=== PATIENT | female | born 1985 | race Two or more races ===

== ENCOUNTER 2019-06-04 14:13 | Emergency (ER) | payer MEDICAID ==
[~2019-06-04] VITALS: Ht 167.6 cm; Wt 68.0 kg
[2019-06-04] MEDS ORDERED: Methocarbamol 750mg tab ORAL ONE (14:45)
[2019-06-04] MEDS ORDERED: Omnipaue 350mg/ml 100ml vial INJ PRN (14:45)
[2019-06-04] MEDS ORDERED: Ketorolac 30mg Inj IV ONE (14:45)
--- NOTE | 2019-06-04 14:45 | NUR ---
ED Nurse Note: Patient walked into ER due to bilateral upper back pain radiating to RLE for for the past 3-4 days. Increased pain when lying flat and c/o SOB/dyspnea with supine position. Reports no flu-like symptoms, long flight or injury. Reports no recent surgery or procedure. Increased pain with walking. Placed patient in gown and property assessment monitor on.
[2019-06-04 15:10] LABS: BASOPHILS % (AUTO) 1.2 % (0.0-2.0); HEMATOCRIT 35.4 % (37.0-47.0); HEMOGLOBIN 11.1 G/DL (12.0-16.0); LYMPHOCYTES % (AUTO) 29.3 % (20.0-45.0); MEAN CORPUSCULAR VOLUME 71 FL (80-99); MONOCYTES % (AUTO) 12.4 % (1.0-10.0); NEUTROPHILS % (AUTO) 57.1 % (45.0-75.0); PLATELET COUNT 364 K/UL (150-450); RED BLOOD COUNT 5.03 M/UL (4.20-5.40); RED CELL DISTRIBUTION WIDTH 16.5 % (11.6-14.8); WHITE BLOOD COUNT 6.9 K/UL (4.8-10.8)
--- NOTE | 2019-06-04 15:12 | NUR ---
ED Nurse Note: U/S tech at bedside.
[2019-06-04 15:21] LABS: ANION GAP 9 mmol/L (5-15); BLOOD UREA NITROGEN 11 mg/dL (7-18); CALCIUM 8.7 MG/DL (8.5-10.1); CARBON DIOXIDE 32 MMOL/L (21-32); CHLORIDE 101 MMOL/L (98-107); CREATININE 0.6 MG/DL (0.55-1.30); POTASSIUM 3.7 MMOL/L (3.5-5.1); SODIUM 141 MMOL/L (136-145)
[2019-06-04 15:22] LABS: APPEARANCE,URINE CLEAR; BILIRUBIN, URINE NEGATIVE (NEGATIVE); GLUCOSE, URINE (UA) NEGATIVE (NEGATIVE); KETONES,URINE 1+ (NEGATIVE); LEUKOCYTE ESTERASE ,URINE 1+ (NEGATIVE); NITRITE,URINE NEGATIVE (NEGATIVE); PH,URINE 6 (4.5-8.0); PROTEIN,URINE 1+ (NEGATIVE); UROBILINOGEN,URINE 1 MG/DL (0.0-1.0)
[2019-06-04 15:23] LABS: COLOR,URINE YELLOW
[2019-06-04 15:36] LABS: ALANINE AMINOTRANSFERASE 22 U/L (12-78); ALBUMIN/GLOBULIN RATIO 1.1 (1.0-2.7); ALKALINE PHOSPHATASE 70 U/L (46-116); ASPARTATE AMINO TRANSFERASE 24 U/L (15-37); BILIRUBIN,TOTAL 0.4 MG/DL (0.2-1.0)
--- NOTE | 2019-06-04 15:41 | NUR ---
ED Nurse Note: Patient taken down to CT scan via gurney.
--- NOTE | 2019-06-04 16:16 | NUR ---
ED Nurse Note: Patient returned to ER. Placed patient back on panel monitor. Patient reports no pain at this time.
[2019-06-04 16:17] VITALS: BP 102/78
--- NOTE | 2019-06-04 17:13 | Diagnostic Imaging Report ---
EXAM: CT Angiography Chest With Intravenous Contrast CLINICAL HISTORY: PAIN TECHNIQUE: Axial computed tomographic angiography images of the chest with intravenous contrast. CTDI is 48.9 mGy and DLP is 727.1 mGy-cm. One or more of the following dose reduction techniques were used: automated exposure control, adjustment of the mA and/or kV according to patient size, use of iterative reconstruction technique. MIP reconstructed images were created and reviewed. COMPARISON: No relevant prior studies available. FINDINGS: Pulmonary arteries: Unremarkable. No pulmonary embolism. Aorta: No acute findings. No thoracic aortic aneurysm. Lungs: Unremarkable. No mass. No consolidation. Pleural space: Unremarkable. No significant effusion. No pneumothorax. Heart: Unremarkable. No cardiomegaly. No significant pericardial effusion. No evidence of RV dysfunction. Bones/joints: No acute fracture. No dislocation. Soft tissues: Mild distention of both intrarenal collecting systems. Lymph nodes: Unremarkable. No enlarged lymph nodes. IMPRESSION: No PE or aortic dissection. No acute pulmonary infiltrate. Fullness of both intrarenal collecting systems.
--- NOTE | 2019-06-04 17:20 | Emergency Room Report ---
History of Present Illness General Chief Complaint: Back Pain-No Injury Source: Patient Present Illness HPI 33-year-old female with no significant past medical history here complaining of 3 days of chest pain and pleuritic chest pain rating a 10 out of 10 with radiation to lumbar region. Patient reports that around his symptoms right knee and calf pain. Denies history of tobacco smoke, control intake, reports that she has an [id number] baby who gave to be a natural . Denies history of recent travel, and reports that she is very mobile. Does admit to recently being diagnosed with cervical cancer and has not started treatment yet. Denies tingling and numbness, chest pain radiation to arm and jaw, palpitation, headache and dizziness. Denies abdominal pain, urinary symptoms. Has not taken medication for symptom relief. Allergies: Coded Allergies: No Known Allergies (Unverified , 06/04/19) Patient History Past Medical History: see triage record Past Surgical History: unable to obtain Pertinent Family History: none Now: No Immunizations: UTD Reviewed Nursing Documentation: PMH: Agreed; PSxH: Agreed Nursing Documentation-PMH Past Medical History: No Stated History Review of Systems All Other Systems: negative except mentioned in HPI Physical Exam Vital Signs Date Time Temp Pulse Resp B/P (MAP) Pulse Ox O2 Delivery O2 Flow Rate FiO2 06/04/19 14:17 98.8 130 19 119/60 (79) 97 Room Air Sp02 EP Interpretation: reviewed, normal General Appearance: no apparent distress, alert, GCS 15, non-toxic Head: normocephalic, atraumatic Eyes: bilateral eye normal inspection, bilateral eye PERRL ENT: hearing grossly normal, normal pharynx, no angioedema, normal voice Neck: full range of motion, supple, supple/symm/no masses Respiratory: chest non-tender, lungs clear, normal breath sounds, no rhonchi, no wheezing, speaking full sentences Cardiovascular #1: regular rate, rhythm, no edema, no murmur Cardiovascular #2: 2+ radial (R), 2+ radial (L), 2+ dorsalis pedis (R), 2+ dorsalis pedis (L) Gastrointestinal: normal bowel sounds, non tender, soft, non-distended, no guarding, no hernia, no pulsatile mass, no rebound Rectal: deferred Genitourinary: no CVA tenderness Musculoskeletal: back normal, normal range of motion, no calf tenderness, gait/ station normal, non-tender Neurologic: alert, motor strength/tone normal, oriented x3, sensory intact, responsive, speech normal Psychiatric: judgement/insight normal, memory normal, mood/affect normal, no suicidal/homicidal ideation Skin: no rash Lymphatic: no adenopathy Medical Decision Making PA Attestation Diagnosis and treatment plans were reviewed and discussed with my supervising physician Dr. Ho Diagnostic Impression: Primary Impression: Acute thoracic myofascial strain Additional Impression: Chest pain, unspecified ER Course 33-year-old female with no significant past medical history here complaining of 3 days of chest pain and pleuritic chest pain rating a 10 out of 10 with radiation to lumbar region. Patient reports that around his symptoms right knee and calf pain. Denies history of tobacco smoke, control intake, reports that she has an 23-[id number]-[id number] baby who gave to be a natural . Denies history of recent travel, and reports that she is very mobile. Does admit to recently being diagnosed with cervical cancer and has not started treatment yet. Denies tingling and numbness, chest pain radiation to arm and jaw, palpitation, headache and dizziness. Denies abdominal pain, urinary symptoms. Has not taken medication for symptom relief. Ddx considered but are not limited to : PE, DVT, unspecified chest pain , thoracic spine fracture, thoracic spine strain, throacic spine sprain, radiculopathy. Vital signs: are WNL, pt. is afebrile H&PE are most consistent with: Unspecified chest pain, thoracic spine strain ORDERS: Chest pain order set, venous duplex of right lower extremity, CTA, Robaxin, ibuprofen, lidocaine patch ED INTERVENTIONS: Toradol, Robaxin DISCHARGE: At this time pt. is stable for d/c to home. Will provide printed patient care instructions, and any necessary prescriptions. Care plan and follow up instructions have been discussed with the patient prior to discharge. Patient to follow-up with primary care provider for referral to [facility] also consider treatment for cervical cancer if worsening symptoms return to the emergency room. EKG Diagnostic Results Rate: normal Rhythm: NSR ST Segments: no acute changes Other Impression No acute ST changes CT/MRI/US Diagnostic Results CT/MRI/US Diagnostic Results #1: Imaging Test Ordered: CTA chest with contrast Impression TECHNIQUE: Axial computed tomographic angiography images of the chest with intravenous contrast. CTDI is 48.9 mGy and DLP is 727.1 mGy-cm. One or more of the following dose reduction techniques were used: automated exposure control, adjustment of the mA and/or kV according to patient size, use of iterative reconstruction technique. MIP reconstructed images were created and reviewed. COMPARISON: No relevant prior studies available. FINDINGS: Pulmonary arteries: Unremarkable. No pulmonary embolism. Aorta: No acute findings. No thoracic aortic aneurysm. Lungs: Unremarkable. No mass. No consolidation. Pleural space: Unremarkable. No significant effusion. No pneumothorax. Heart: Unremarkable. No cardiomegaly. No significant pericardial effusion. No evidence of RV dysfunction. Bones/joints: No acute fracture. No dislocation. Soft tissues: Mild distention of both intrarenal collecting systems. Lymph nodes: Unremarkable. No enlarged lymph nodes. IMPRESSION: No PE or aortic dissection. No acute pulmonary infiltrate. Fullness of both intrarenal collecting systems. CT/MRI/US Diagnostic Results #2: Imaging Test Ordered: venous duplex RLE Impression no DVT Last Vital Signs Date Time Temp Pulse Resp B/P (MAP) Pulse Ox O2 Delivery O2 Flow Rate FiO2 06/04/19 16:17 97.7 80 19 102/78 99 Room Air Disposition: HOME, SELF-CARE Condition: Stable Scripts Lidocaine Patch* (Lidoderm Patch*) 1 Each Adh..patch 1 PATCH TOPIC DAILY, #7 PATCH 0 Refills Patch(es) may remain in place for up to 12 hours in any 24-hour period. Prov: Mary Haq 06/04/19 Methocarbamol* (ROBAXIN-500*) 500 Mg Tablet 500 MG ORAL TID PRN for For Pain, #15 TAB 0 Refills Prov: Mary Haq 06/04/19 Ibuprofen (Ibu) 800 Mg Tablet 800 MG PO TID, #30 TAB Prov: Mary Haq 06/04/19 Referrals: NOT CHOSEN [facility]/,REFERRING (PCP) Patient Instructions: Back Pain, Adult Additional Instructions: Take medication as directed, follow-up with your primary care provider, if worsening symptoms return to the emergency room. Also, follow-up with [facility] regarding your unspecified chest pain Mary Haq Jun 04, 2019 17:20
[2019-06-04] MEDS ORDERED: LIDODERM700 M1 TOPIC (17:21)
[2019-06-04] MEDS ORDERED: IBU800 MG PO (17:21)
[2019-06-04] MEDS ORDERED: ROBAXIN-500MG ORAL (17:21)
[2019-06-04 17:36] VITALS: BP 95/63
--- NOTE | 2019-06-04 17:41 | NUR ---
ER DISCHARGE NOTE: Patient is cleared to be discharged per ERMD, pt is aox4, on room air, with stable vital signs. pt was given dc and prescription instructions, pt was able to verbalize understanding, REMOVED ID BAND. PATEINT AMBULATED OUT WITH STEADY GAIT, ACCOMPANIED BY FAMILY MEMBER.
== END 2019-06-04 17:40 | disposition home or self-care (01) ==
LOC: EMR 14:32
DX: S29.012A Strain of muscle and tendon of back wall of thorax, initial encounter (principal); R07.9 Chest pain, unspecified; C53.9 Malignant neoplasm of cervix uteri, unspecified; X58.XXXA Exposure to other specified factors, initial encounter; Y93.9 Activity, unspecified; Y92.9 Unspecified place or not applicable
CPT/HCPCS: 36415; 71275; 80053; 81003; 81025; 83880; 84484; 85025; 85610; 85730; 86850; 86900; 86901; 93971; 96374; J1885; Q9967; Z7502; 99284